=== PATIENT | male | born 1940 | race Caucasian/White ===

== ENCOUNTER 2024-01-22 14:06 | Inpatient (IN) | payer MEDICARE, BC ==
[~2024-01-22] VITALS: Ht 177.8 cm; Wt 87.1 kg
[~2024-01-22 14:06] MED LIST: ASPI81TA31 PO; SIMV-46 PO; [UNRECOGNIZED DRUG - REMARK]
[2024-01-22] MEDS ORDERED: DEXAMETHASONE SOD PHOSPHATE 10 MG INJ ONE (14:31)
[2024-01-22] MEDS ORDERED: [UNRECOGNIZED DRUG - OTHER] (14:32)
[2024-01-22 14:49] LABS: BASOPHILS % (AUTO) 0.4 % (0.0-2.0); HEMATOCRIT 41.5 % (36.7-47.1); HEMOGLOBIN 13.6 g/dL (12.5-16.3); LYMPHOCYTES # (AUTO) 1.2 K/uL (0.8-4.8); LYMPHOCYTES % (AUTO) 12.6 % (20.5-51.5); MEAN CORPUSCULAR HEMOGLOBIN 30.4 uug (23.8-33.4); MEAN CORPUSCULAR HGB CONC 33 g/dL (32.5-36.3); MEAN CORPUSCULAR VOLUME 92.4 fL (73.0-96.2); MONOCYTES # (AUTO) 1.1 K/uL (0.1-1.30); MONOCYTES % (AUTO) 12.4 % (0.0-11.0); NEUTROPHILS # (AUTO) 6.9 K/uL (1.8-8.9); NEUTROPHILS % (AUTO) 74.6 % (38.5-71.5); PLATELET COUNT (AUTO) 116 K/uL (152-348); RED BLOOD CELL COUNT(AUTO) 4.49 MIL/uL (4.06-5.63); RED CELL DISTRIBUTION WIDTH 14.6 % (12.1-16.2); WHITE BLOOD COUNT (AUTO) 9.2 K/uL (3.6-10.2)
[2024-01-22 14:50] LABS: ABG BASE EXCESS 0.4 mmol/L (-2.0-2.0); ABG HCO3 24.9 mmol/L (22.0-26.0); ABG PCO2 39.6 mmHg (35.0-48.0); ABG PH 7.416 (7.340-7.440); ABG SITE RIGHT RADIAL; ABG TOTAL HEMOGLOBIN 14.1 G/dL (14.0-18.0); AaDO2 93.1 mmHg; COHb 0.8 % (0.0-3.9); MetHb 0.1 % (0.0-1.5); O2Hb 91.4 % (94.0-97.0)
[2024-01-22 14:51] LABS: DIFFERENTIAL COMMENT 1
[2024-01-22] MEDS: IV NORMAL SALINE 500 ML IV ONE (14:59)
[2024-01-22] MEDS: DEXAMETHASONE SOD PHOSPHATE 4 MG INJ IV ONE (14:59)
[2024-01-22 15:02] LABS: CALCIUM 8.6 mg/dL (8.5-10.1); CARBON DIOXIDE 28 mmol/L (21-32); CHLORIDE 97 mmol/L (98-107); CREATININE 1.3 mg/dL (0.6-1.3); GLUCOSE 144 mg/dL (74-106); POTASSIUM 4.6 mmol/L (3.5-5.1); SODIUM SERUM 133 mmol/L (136-145); UREA NITROGEN, BLOOD 19 mg/dL (7-18)
[2024-01-22] MEDS: REMDESIVIR (CHARGED) 200 MG in IV NORMAL SALINE 210 ML IV ONE (15:10)
[2024-01-22 15:16] LABS: ALANINE AMINOTRANSFERASE 28 U/L (16-63); ALBUMIN 3.2 g/dL (3.4-5.0); ALKALINE PHOSPHATASE 67 U/L (50-136); ASPARTATE AMINOTRANSFERASE 16 U/L (15-37); BILIRUBIN,TOTAL 1.3 mg/dL (0.2-1.0); C-REACTIVE PROTEIN 6.45 mg/dL (0.00-0.30); LACTATE DEHYDROGENASE 124 U/L (85-227); NT-PRO BNP 610 pg/mL (0-125)
[2024-01-22 15:30] LABS: CREATINE KINASE, TOTAL 42 U/L (39-308)
[2024-01-22 15:48] LABS: *BILIRUBIN,URIN NEGATIVE (NEGATIVE); *BLOOD, URINE NEGATIVE (NEGATIVE); *CLARITY,URINE CLEAR (CLEAR); *COLOR,URINE YELLOW (YELLOW); *KETONES,URINE TRACE (NEGATIVE); *PROTEIN,URINE 1+ (NEGATIVE); *UROBILINOGEN,URINE 0.2 E.U./dl (NORMAL); LEUKOCYTE ESTERASE ,URINE NEGATIVE (NEGATIVE); NITRITE, URINE NEGATIVE (NEGATIVE); UGLUCOSE NEGATIVE (NEGATIVE)
[2024-01-22] MEDS ORDERED: ALBUTEROL SULFATE 2.5 MG/3 ML NEBU ONE (16:22)
[2024-01-22] MEDS ORDERED: IPRATROPIUM BROMIDE 0.5 MG/2.5 ML NEBU ONE (16:22)
[2024-01-22 16:28] LABS: BACTERIA,URINE NONE SEEN /HPF (NONE SEEN); SQUAMOUS EPITHELIAL CELL,UR FEW /HPF (NONE SEEN); WBC,URINE NONE SEEN /HPF (0-3)
[2024-01-22 16:29] LABS: RBC,URINE 0-3 /HPF (0-3)
[2024-01-22] MEDS: ALBUTEROL SULFATE 2.5 MG/3 ML NEBU NEB ONE (16:29)
[2024-01-22] MEDS: IPRATROPIUM BROMIDE 0.5 MG/2.5 ML NEBU NEB ONE (16:29)
[2024-01-22 16:30] VITALS: O2SAT 98
[2024-01-22 16:45] VITALS: O2SAT 99
[2024-01-22] MEDS ORDERED: MAGNESIUM HYDROXIDE 30 ML LIQUID UDC PO PRN (19:45)
[2024-01-22] MEDS ORDERED: ACETAMINOPHEN 325 MG TABLET PO PRN (19:45)
[2024-01-22] MEDS: AZITHROMYCIN 250 MG TABLET PO ONE ×2 (19:45→23:26)
[2024-01-22] MEDS ORDERED: REMEDY ESSENTIAL ZINC PASTE 113 GM TP PRN (19:45)
[2024-01-22] MEDS ORDERED: ONDANSETRON 4 MG/2 ML VIAL IV PRN (19:45)
[2024-01-22 20:39] LABS: THYROID STIMULATING HORMONE 0.301 mIU/mL (0.358-3.740)
[2024-01-22] MEDS: ENOXAPARIN SODIUM 40 MG/0.4 ML DISP.SYRIN SQ SCH (21:00)
[2024-01-22] MEDS: SIMVASTATIN 20 MG TABLET PO SCH (21:00)
[2024-01-22 22:16] VITALS: BP 149/80; TEMP 97.9; O2SAT 96
[2024-01-23 00:10] VITALS: BP 141/76; TEMP 97.8; O2SAT 94
[2024-01-23 04:29] VITALS: BP 134/86; TEMP 98.2; O2SAT 95
[2024-01-23] MEDS: PANTOPRAZOLE SODIUM 40 MG TABLET.DR PO SCH (06:16)
[2024-01-23 07:30] LABS: CALCIUM 8.8 mg/dL (8.5-10.1); CARBON DIOXIDE 26 mmol/L (21-32); CHLORIDE 103 mmol/L (98-107); GLUCOSE 182 mg/dL (74-106); MAGNESIUM 2.2 mg/dL (1.8-2.4); PHOSPHOROUS 2.2 mg/dL (2.5-4.9); POTASSIUM 3.8 mmol/L (3.5-5.1); SODIUM SERUM 138 mmol/L (136-145); UREA NITROGEN, BLOOD 19 mg/dL (7-18)
[2024-01-23 07:33] LABS: BASOPHILS % (AUTO) 0.1 % (0.0-2.0); HEMOGLOBIN 14.1 g/dL (12.5-16.3); LYMPHOCYTES # (AUTO) 1.1 K/uL (0.8-4.8); LYMPHOCYTES % (AUTO) 13.8 % (20.5-51.5); MEAN CORPUSCULAR HEMOGLOBIN 30.9 uug (23.8-33.4); MEAN CORPUSCULAR HGB CONC 34 g/dL (32.5-36.3); MEAN CORPUSCULAR VOLUME 92.1 fL (73.0-96.2); MONOCYTES # (AUTO) 0.4 K/uL (0.1-1.30); MONOCYTES % (AUTO) 5.2 % (0.0-11.0); NEUTROPHILS # (AUTO) 6.1 K/uL (1.8-8.9); NEUTROPHILS % (AUTO) 80.9 % (38.5-71.5); PLATELET COUNT (AUTO) 131 K/uL (152-348); RED BLOOD CELL COUNT(AUTO) 4.56 MIL/uL (4.06-5.63); RED CELL DISTRIBUTION WIDTH 14.3 % (12.1-16.2); WHITE BLOOD COUNT (AUTO) 7.6 K/uL (3.6-10.2)
[2024-01-23 07:44] LABS: DIFFERENTIAL COMMENT 1
[2024-01-23 08:57] VITALS: BP 132/77; TEMP 98; O2SAT 96
[2024-01-23] MEDS: ASPIRIN 81 MG TAB.CHEW PO SCH (09:00)
[2024-01-23] MEDS: DEXAMETHASONE SOD PHOSPHATE 4 MG INJ IV SCH (09:00)
[2024-01-23] MEDS ORDERED: AZITHROMYCIN 250 MG TABLET PO SCH ×2 (09:00→23:00)
[2024-01-23] MEDS ORDERED: AZIT250T13 PO (13:15)
[2024-01-23] MEDS ORDERED: DEXA6TAB6 PO (13:15)
[2024-01-23] MEDS ORDERED: SIMVASTATIN 20 MG TABLET PO SCH (21:00)
== END 2024-01-23 10:10 | disposition left against medical advice (07) | DRG 177 ==
LOC: ER 14:06 → TELE3 20:49
PROVIDERS: ADMIT Nurse Practitioner Acute Care; ATTEND Nurse Practitioner Acute Care
PROC: 05HF33Z Insertion of Infusion Device into Left Cephalic Vein, Percutaneous Approach (ICD-10-PCS; principal; 2024-01-22)
DX: U07.1 COVID-19 (principal); G93.41 Metabolic encephalopathy; J12.82 Pneumonia due to coronavirus disease 2019; J96.01 Acute respiratory failure with hypoxia; I69.351 Hemiplegia and hemiparesis following cerebral infarction affecting right dominant side; D69.6 Thrombocytopenia, unspecified; E78.5 Hyperlipidemia, unspecified; Z79.82 Long term (current) use of aspirin; Z53.29 Procedure and treatment not carried out because of patient's decision for other reasons; N40.0 Benign prostatic hyperplasia without lower urinary tract symptoms; I10 Essential (primary) hypertension; Z79.899 Other long term (current) drug therapy
CPT/HCPCS: 36415; 36600; 71045; 82803; 83605; 83615; 83735; 84100; 84443; 84484; 85025; 85730; 86140; 87040; 93005; A4606; A4663; G0378; J0248; J1100; J3590; J7040; Q0144